=== PATIENT | female | born 1950 | race Two or more races ===

== ENCOUNTER 2018-06-07 19:38 | Emergency (ER) | payer MEDICARE, MEDICAID ==
[~2018-06-07] VITALS: Ht 160 cm; Wt 75.0 kg
[~2018-06-07 19:38] MED LIST: ASPI-1159 PO; BENA40TA9 PO; LEVO50TA8 PO; VITA80008 PO
[2018-06-07] MEDS ORDERED: ONDANSETRON HCL 4MG/2ML INJ IV STA (22:54)
[2018-06-07] MEDS ORDERED: SODIUM CHLORIDE 0.9% 1,000 ML IV ONE (22:54)
[2018-06-07] MEDS ORDERED: MORPHINE SULFATE 4 MG/ML CPJ (NOT FOR IM USE) IV STA (22:54)
[2018-06-07 23:12] LABS: EOSINOPHILS % 12.4 % (0.0-5.0); HEMATOCRIT. 39.8 % (36.0-48.0); HEMOGLOBIN. 13.5 g/dL (12.0-16.0); LYMPHOCYTES % 29.6 % (20.0-50.0); MEAN CORPUSCULAR VOLUME 88.5 fL (81.0-99.0); MEAN PLATELET VOLUME 7.5 fl (7.4-10.4); MONOCYTES % 7.4 % (2.0-8.0); NEUTROPHILS % 49.6 % (40.0-76.0); PLATELET 212 x1000/uL (130-400); RED CELL DISTRIBUTION WIDTH 15.1 % (11.6-14.6)
[2018-06-07 23:18] LABS: CHLORIDE 108 mEq/L (98-107)
[2018-06-07 23:22] LABS: CLARITY URINE CLEAR (CLEAR); COLOR URINE YELLOW (YELLOW); KETONES URINE NEGATIVE (NEGATIVE); LEUKOCYTE ESTERASE URINE NEGATIVE (NEGATIVE); NITRITE URINE NEGATIVE (NEGATIVE); OCCULT BLOOD URINE NEGATIVE (NEGATIVE); PH URINE 6.5 (4.5-8.0); PROTEIN URINE NEGATIVE (NEGATIVE); SPECIFIC GRAVITY URINE 1.007 (1.005-1.030); UROBILINOGEN URINE 0.2 E.U./dL (0.2-1.0)
[2018-06-08 03:41] VITALS: BP 141/66
== END 2018-06-08 03:42 | disposition home or self-care (01) ==
LOC: ER 19:38
DX: K43.9 Ventral hernia without obstruction or gangrene (principal); I10 Essential (primary) hypertension; Z79.899 Other long term (current) drug therapy; Z93.3 Colostomy status; Z79.82 Long term (current) use of aspirin
CPT/HCPCS: 36415; 74176; 80053; 81003; 83605; 83690; 85025; 93005; 96361; 96374; 96375; 99284; J2270; J2405; J7030

== ENCOUNTER 2019-02-20 18:03 | Emergency (ER) | payer MEDICARE, MEDICAID ==
[~2019-02-20] VITALS: Ht 162.6 cm; Wt 90.0 kg
[~2019-02-20 18:03] MED LIST changes: -ASPI-1159 PO; +ASPI-1393 PO
[2019-02-20] MEDS ORDERED: HYDROCODONE/ACETAMINOPHEN 5/325MG TABLET PO ONE (22:45)
[2019-02-20] MEDS ORDERED: KETOROLAC 60MG/2ML VIAL IM ONE (22:45)
[2019-02-20 23:02] LABS: BASOPHILS % 0.9 % (0.0-2.0); EOSINOPHILS % 14.1 % (0.0-5.0); HEMOGLOBIN. 13.2 g/dL (12.0-16.0); MEAN CORPUSCULAR HEMOGLOBIN 28.9 pg (28.0-32.0); MEAN PLATELET VOLUME 7.1 fl (7.4-10.4); MONOCYTES % 8.2 % (2.0-8.0); NEUTROPHILS % 50.8 % (40.0-76.0); PLATELET 202 x1000/uL (130-400); RED BLOOD CELL COUNT 4.54 mill/uL (4.2-5.4); RED CELL DISTRIBUTION WIDTH 14.1 % (11.6-14.6)
[2019-02-20 23:07] VITALS: BP 166/67
[2019-02-20 23:07] LABS: CHLORIDE 107 mEq/L (98-107)
== END 2019-02-21 00:06 | disposition home or self-care (01) ==
LOC: ER 18:03
DX: J18.9 Pneumonia, unspecified organism (principal); I10 Essential (primary) hypertension; E03.9 Hypothyroidism, unspecified; F17.210 Nicotine dependence, cigarettes, uncomplicated; Z85.9 Personal history of malignant neoplasm, unspecified; Z93.3 Colostomy status; Z79.82 Long term (current) use of aspirin; Z71.6 Tobacco abuse counseling
CPT/HCPCS: 36415; 71045; 80053; 83880; 84484; 85025; 93005; 96372; 99284; 99406; J1885